=== PATIENT | female | born 1985 | race Caucasian/White ===

== ENCOUNTER 2018-10-12 21:54 | Emergency (ER) | payer OTHER ==
[2018-10-12 22:05] VITALS: BP 156/96; PULSE 96; RESP 18; TEMP 98.9
[2018-10-12 22:26] LABS: Basophils % (A) 0 %; Eosinophils # (A) 0.1 k/uL (0-0.7); Eosinophils % (A) 1 %; HCT 43.6 % (34.0-46.0); HGB 14.5 gm/dL (11.4-16.0); Lymphocytes # (A) 2.7 k/uL (1.0-4.8); Lymphocytes % (A) 31 %; MCH 32.1 pg (25.0-35.0); MCHC 33.3 g/dL (31.0-37.0); MCV 96.4 fL (80.0-100.0); Mean Platelet Volume 7.1; Monocytes # (A) 0.5 k/uL (0-1.0); Monocytes % (A) 6 %; Neutrophils # (A) 5.3 k/uL (1.3-7.7); Neutrophils % (A) 60 %; Platelet Count 291 k/uL (150-450); RBC 4.52 m/uL (3.80-5.40); RDW 12.8 % (11.5-15.5); WBC 8.9 k/uL (3.8-10.6)
[2018-10-12 22:30] LABS: Glucose,Whole Blood 100 mg/dL (75-99)
[2018-10-12 22:33] LABS: Partial Thromboplastin Time 25.8 sec (22.0-30.0); Prothrombin Time 10.4 sec (9.0-12.0)
[2018-10-12 22:34] LABS: ALT 19 U/L (9-52); AST 23 U/L (14-36); African American GFR (CKD) >90 (>60 ml/min/1.73 sqM); Albumin 4.9 g/dL (3.5-5.0); Alcohol <10 mg/dL; Alkaline Phosphatase 109 U/L (38-126); Amylase 68 U/L (30-110); Anion Gap 10 mmol/L; Blood Urea Nitrogen 26 mg/dL (7-17); Calcium 10.1 mg/dL (8.4-10.2); Carbon Dioxide 26 mmol/L (22-30); Chloride 104 mmol/L (98-107); Glucose 99 mg/dL (74-99); Potassium 3.8 mmol/L (3.5-5.1); Sodium 140 mmol/L (137-145); Total Bilirubin 0.3 mg/dL (0.2-1.3); Total Protein 8.2 g/dL (6.3-8.2)
[2018-10-12 22:38] LABS: Creatine Kinase 151 U/L (30-135)
--- NOTE | 2018-10-12 22:48 | XR ---
History: ITS.REASON XR Reason: TRAUMA Exam: XR CXR 1 VIEW Comparison: None available FINDINGS: The lungs are clear. The cardiac and mediastinal contours appear within limits. The visualized osseous structures appear within limits. IMPRESSION: No evidence of acute traumatic injury.
--- NOTE | 2018-10-12 22:50 | XR ---
History: ITS.REASON XR Reason: TRAUMA Exam: XR PELVIS single image Comparison: None available FINDINGS: No fracture or dislocation. Symmetric appearing SI joints and pubic symphysis appear within limits. IMPRESSION: No fracture or dislocation.
[2018-10-12 22:52] LABS: Creatine Kinase MB 0.4 ng/mL (0.0-2.4); Troponin I <0.012 ng/mL (0.000-0.034)
[2018-10-12] MEDS ORDERED: KETOROLAC 30 MG/ML 1 ML VIAL IVP STA (23:05)
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
--- NOTE | 2018-10-12 23:18 | CT ---
History: ITS.REASON CT Reason: trauma Exam: CT HEAD Without Contrast Technique more: CTDI is 45.2 mGy and DLP is 997.1 mGy-cm. Technique more: This CT exam was performed using one or more of the following dose reduction techniques: automated exposure control, adjustment of the mA and/or kV according to patient size, and/or use of iterative reconstruction technique. Comparison: None available FINDINGS: No intracranial hemorrhage, mass effect or calvarial fracture. The ventricles are within limits and midline. The paranasal sinuses, mastoids and orbits appear within limits. IMPRESSION: No intracranial hemorrhage, mass effect or calvarial fracture. Exam: CT C SPINE Without Contrast Technique more: CTDI is 9.8 mGy and DLP is 311 mGy-cm. Technique more: This CT exam was performed using one or more of the following dose reduction techniques: automated exposure control, adjustment of the mA and/or kV according to patient size, and/or use of iterative reconstruction technique. Comparison: None available FINDINGS: No fracture or malalignment. Disc spaces appear within limits. No evidence of prevertebral swelling. IMPRESSION: No fracture or malalignment.
--- NOTE | 2018-10-12 23:31 | CT ---
History: ITS.REASON CT Reason: trauma Exam: CT CHEST With Contrast Technique more: CTDI is 9.1 mGy and DLP is 633.7 mGy-cm. Technique more: This CT exam was performed using one or more of the following dose reduction techniques: automated exposure control, adjustment of the mA and/or kV according to patient size, and/or use of iterative reconstruction technique. Comparison: None available FINDINGS: Mild dependent basilar atelectasis. The central airways are patent. No pneumothorax. Thoracic aorta appears within limits. No pericardial or pleural effusion. No acute fracture. Right acromioclavicular joint osteoarthrosis. IMPRESSION: No evidence of acute traumatic injury. Exam: CT ABDOMEN + PELVIS With Contrast Technique more: CTDI is 9.1 mGy and DLP is 633.7 mGy-cm. Technique more: This CT exam was performed using one or more of the following dose reduction techniques: automated exposure control, adjustment of the mA and/or kV according to patient size, and/or use of iterative reconstruction technique. Comparison: None available FINDINGS: Motion artifact. Abdominal solid organs, gallbladder and abdominal aorta appear intact. Small hepatic cyst. No bowel dilation or free air. Normal caliber retrocecal appendix without secondary signs. Complex cystic lesion left adnexa measuring approximately 6.3 x 4.2 x 4.5 cm coronal 35 and axial 96. Requires follow-up with [facility]ESTHESIOLOGISTS' ASSISTANT consult and further workup. Small pelvic free fluid. Bladder appears within limits. No acute fracture identified. IMPRESSION: No definite evidence of acute traumatic injury. Complex cystic lesion left adnexa measuring approximately 6.3 x 4.2 x 4.5 cm coronal 35 and axial 96. Requires follow-up with ANESTHESIOLOGISTS' ASSISTANT consult and further workup. Small pelvic free fluid.
[2018-10-13 00:51] LABS: Appearance,Urine Clear (Clear); Bacteria,Urine Rare /hpf; Bilirubin,Urine Negative (Negative); Blood,Urine Negative (Negative); Color,Urine Light Yellow; Glucose,Urine (UA) Negative (Negative); Ketones,Urine 1+ (Negative); Leukocyte Esterase,Urine Moderate (Negative); Nitrite,Urine Negative (Negative); PH, Urine 6.5 (5.0-8.0); Protein,Urine Negative (Negative); RBC,Urine 2 /hpf (0-5); Squamous Epithelial Cell,Urine 11 /hpf (0-4); Urobilinogen,Urine <2.0 mg/dL (<2.0); WBC,Urine 4 /hpf (0-5)
[2018-10-13 00:56] LABS: Amphetamine Screen,Urine Not Detected (NotDetected); Barbiturate Screen,Urine Not Detected (NotDetected); Benzodiazepines Screen,Urine Not Detected (NotDetected); Cocaine Screen,Urine Not Detected (NotDetected); Methadone Screen, Urine Not Detected (NotDetected); Opiate Screen,Urine Not Detected (NotDetected); Oxycodone Screen, Urine Not Detected (NotDetected); Phencyclidine Screen,Urine Not Detected (NotDetected); Specific Gravity,Urine >1.050 (1.001-1.035); Tricyclic Antidepressant,Urine Not Detected (NotDetected); Urn Cannabinoid Scrn Not Detected (NotDetected)
== END 2018-10-13 01:22 | disposition home or self-care (01) ==
LOC: EC 21:54
DX: S16.1XXA Strain of muscle, fascia and tendon at neck level, initial encounter (principal); S70.01XA Contusion of right hip, initial encounter; S20.211A Contusion of right front wall of thorax, initial encounter; R10.9 Unspecified abdominal pain; R51 Headache; M79.7 Fibromyalgia; F17.200 Nicotine dependence, unspecified, uncomplicated; Z79.899 Other long term (current) drug therapy; V13.4XXA Pedal cycle driver injured in collision with car, pick-up truck or van in traffic accident, initial encounter; Y93.89 Activity, other specified; Y92.410 Unspecified street and highway as the place of occurrence of the external cause
CPT/HCPCS: 36415; 86900; 86901; 80053; 82150; 82550; 82553; 83605; 83690; 84484; 85025; 85610; 85730; 86850; 81001; 80306; 80320; 72170; 71045; 72125; 70450; 71260; 74177; 99285; 96374; J1885

== ENCOUNTER → 2018-11-13 | Outpatient (CLI) | payer OTHER ==
--- NOTE | 2018-11-14 08:38 | US ---
EXAMINATION TYPE: US transvaginal DATE OF EXAM: 11/13/2018 COMPARISON: NONE CLINICAL HISTORY: Left Ovarian Cyst N83.202. Hx of ovarian cyst. TECHNIQUE: Transvaginal (TV). EXAM MEASUREMENTS: Uterus: 7.9 x 4.0 x 6.1 cm Endometrial Stripe: 0.4 cm Right Ovary: 4.2 x 2.1 x 2.3 cm Left Ovary: 5.2 x 3.9 x 6.6 cm 1. Uterus: Anteverted wnl 2. Endometrium: wnl 3. Right Ovary: Two hypoechoic areas seen with color flow seen. These measure 1.8 x 1.3 x 1.1 and 1. 4 x .8 x 1.0 cm, likely hemorrhagic follicles 4. Left Ovary: Multiple cysts largest with thin septation measuring 4.3 x 2.8 x 4.9 cm. 5. Bilateral Adnexa: wnl 6. Posterior cul-de-sac: Small volume fluid seen. IMPRESSION: 1. Multiple left ovarian cysts are seen. The largest contains thin internal septations and measures 4 .9 cm. Within the left ovary there are probable hemorrhagic follicles versus much less likely solid l esions. Follow-up ultrasound is recommended in 3 menstrual cycles to ensure decrease size or resoluti on. 2. Small amount of free fluid in posterior cul-de-sac is likely physiologic. This could be sequela of recently ruptured cyst.
== END | disposition home or self-care (01) ==
LOC: RADUSWWP 15:45
PROVIDERS: ATTEND Obstetrics & Gynecology
DX: N83.202 Unspecified ovarian cyst, left side (principal)
CPT/HCPCS: 76830

== ENCOUNTER → 2019-01-30 | Outpatient (CLI) | payer OTHER ==
--- NOTE | 2019-01-30 11:36 | US ---
EXAMINATION TYPE: Transabdominal DATE OF EXAM: 01/30/2019 11:12 AM COMPARISON: NONE CLINICAL HISTORY: Z34.8. Early OB EXAM PERFORMED: OBTA EXAM MEASUREMENTS: GESTATIONAL AGE / DATING Physician Established: Not yet established Dates by LMP: (6 weeks/0 days) EDC: Dates by First Scan: No previous this is first scan Dates by Current Scan for: (6 weeks/1 days) EDC: 09/23/2018 MATERNAL ANATOMY Uterus: 10.9 x 6.5 x 5.9cm Right Ovary: 4.4 x 2.8 x 2.4cm Left Ovary: 5.7 x 3.3 x 4.6cm, multiple cystic areas as noted on previous exams, largest = 2.7cm Post CDS / Adnexa: wnl Presence of free fluid: no Presence of corpus luteal cyst: right ovary 2.9cm Presence of subchorionic bleed: no GESTATION / SURVEY CRL: 0.4cm ( 6 weeks/1 days) MSD: wnl Yolk Sac (normal less than 6mm): 0.3cm Heart Rate: 123 bpm Rhythm: Normal IUP: Viable IUP Date of LMP: 12/19/2018 IMPRESSION: Single viable intrauterine . Bilateral ovarian cysts.
== END | disposition home or self-care (01) ==
LOC: RADUSWWP 10:44
PROVIDERS: ATTEND Obstetrics & Gynecology
DX: N83.202 Unspecified ovarian cyst, left side (principal); N83.201 Unspecified ovarian cyst, right side
CPT/HCPCS: 76801

== ENCOUNTER → 2019-02-15 | Outpatient (CLI) | payer OTHER ==
--- NOTE | 2019-02-16 07:30 | US ---
EXAMINATION TYPE: Transabdominal DATE OF EXAM: 02/15/2019 6:02 PM COMPARISON: US"S CLINICAL HISTORY: O20.0 Threatened . cervix length EXAM PERFORMED: Transvaginal (TV) and Transabdominal (TA) EXAM MEASUREMENTS: GESTATIONAL AGE / DATING Physician Established: (8 weeks/2 days) EDC: 09/25/2019 Dates by LMP: 12/19/2018 (8 weeks/2 days) EDC: 09/25/2019 Dates by First Scan: (8 weeks/2 days) EDC: 09/25/2019 Dates by Current Scan for: (8 weeks/6 days) EDC: 09/21/2019 MATERNAL ANATOMY Uterus: 14.6 x 6.2 x 7.1 cm Right Ovary: 4.5 x 2.5 x 3.2 cm Left Ovary: 6.9 x 4.9 x 5.1 cm Post CDS / Adnexa: wnl Presence of free fluid: none Presence of corpus luteal cyst: solid area right ovary measures 2.6 x 1.7 x 2.2 cm with peripheral fl ow. Cervix: 3.8 cm GESTATION / SURVEY CRL: 2.1 cm (8 weeks/6 days) Yolk Sac (normal less than 6mm): 0.4 cm Heart Rate: 168 bpm Rhythm: Normal IUP: Live IUP Date of LMP: 12/19/2018 Live IUP that correlates with LMP. Enlarged left ovary with multiple cysts, largest measures 3.4 x 3. 0 x 3.4 cm. Prior imaging on PACS from 11/13/2018. IMPRESSION: Single live intrauterine with a sonographic age of 8 weeks and 6 days concordan t with menstrual age with estimated date of delivery of 09/25/2019. No cervical incompetence with a ce rvical length measuring 3.8 cm.
== END | disposition home or self-care (01) ==
LOC: RADUSMAIN 17:25
PROVIDERS: ATTEND Obstetrics & Gynecology
DX: Z34.91 Encounter for supervision of normal pregnancy, unspecified, first trimester (principal); Z3A.08 8 weeks gestation of pregnancy
CPT/HCPCS: 76801; 76817

== ENCOUNTER 2019-04-07 09:04 | Emergency (ER) | payer OTHER ==
[2019-04-07] MEDS ORDERED: ALBUTEROL NEBULIZED 2.5 MG/3 ML INHALATION STA (09:47)
[2019-04-07] MEDS ORDERED: guaiFENesin-DM 100-10MG/5ML 10 ML CUP PO STA (09:47)
[2019-04-07] MEDS ORDERED: ACETAMINOPHEN TAB 500 MG TAB PO STA (09:47)
--- NOTE | 2019-04-07 10:07 | ED ---
URI HPI - General Chief Complaint: Upper Respiratory Infection Stated Complaint: 16 wks /Congested Time Seen by Provider: 04/07/19 09:40 Source: patient, RN notes reviewed, old records reviewed Mode of arrival: ambulatory Limitations: no limitations - History of Present Illness Initial Comments: Patient is a 33-year-old female, approximately 16 weeks . She presents today with chief complaint of cough congestion shortness of breath. Patient states that her PROJECT BUYER is Dr. Noyola. 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 She reports that she's had a worsening cough over the past 3 days. Patient states that she has a history of asthma and has been using her inhaler as needed. States that she just still cannot get a full deep breath without having bronchospasm and coughing. - Related Data Home Medications Medication Instructions Recorded Confirmed Albuterol Inhaler [Ventolin Hfa 1 - 2 puff INHALATION RT-Q6H PRN 10/12/18 10/12/18 Inhaler] Montelukast [Singulair] 10 mg PO DAILY PRN 10/12/18 10/12/18 Multivitamins, Thera [Multivitamin 1 tab PO DAILY 10/12/18 10/12/18 (formulary)] Pregabalin [Lyrica] 300 mg PO BID 10/12/18 10/12/18 Previous Rx's Medication Instructions Recorded Cyclobenzaprine [Flexeril] 10 mg PO TID #14 tab 10/13/18 Ibuprofen 800 mg PO Q6HR PRN #20 tablet 10/13/18 Azithromycin [Zithromax Z-pack] 250 mg PO DIRECTED #6 tab 04/07/19 guaiFENesin-DM 100-10MG/5ML 10 ml PO QID #120 ml 04/07/19 [Robitussin DM] Allergies Allergy/AdvReac Type Severity Reaction Status Date / Time No Known Allergies Allergy Verified 04/07/19 09:25 Review of Systems ROS Statement: Those systems with pertinent positive or pertinent negative responses have been documented in the HPI. ROS Other: All systems not noted in ROS Statement are negative. Past Medical History Past Medical History: Asthma, Fibromyalgia History of Any Multi-Drug Resistant Organisms: None Reported Past Surgical History: No Surgical Hx Reported Past Psychological History: No Psychological Hx Reported Smoking Status: Former smoker Past Alcohol Use History: None Reported Past Drug Use History: None Reported General Exam - General Exam Comments Initial Comments: 31 female. Alert and oriented 3. Limitations: no limitations General appearance: alert, in no apparent distress Head exam: Present: atraumatic, normocephalic, normal inspection Eye exam: Present: normal appearance, PERRL, EOMI. Absent: scleral icterus, conjunctival injection, periorbital swelling ENT exam: Present: normal exam, mucous membranes moist Neck exam: Present: normal inspection. Absent: tenderness, meningismus, lymphadenopathy Respiratory exam: Present: normal lung sounds bilaterally. Absent: respiratory distress, wheezes, rales, rhonchi, stridor Cardiovascular Exam: Present: regular rate, normal rhythm, normal heart sounds. Absent: systolic murmur, diastolic murmur, rubs, gallop, clicks GI/Abdominal exam: Present: soft, normal bowel sounds. Absent: distended, tenderness, guarding, rebound, rigid Extremities exam: Present: normal inspection, full ROM, normal capillary refill. Absent: tenderness, pedal edema, joint swelling, calf tenderness Back exam: Present: normal inspection Neurological exam: Present: alert, oriented X3, CN II-XII intact Psychiatric exam: Present: normal affect, normal mood Skin exam: Present: warm, dry, intact, normal color. Absent: rash Course Vital Signs 04/07/19 04/07/19 04/07/19 09:20 09:56 10:07 Temperature 98.5 F Pulse Rate 100 85 89 Respiratory 20 Rate Blood Pressure 110/71 O2 Sat by Pulse 98 Oximetry Medical Decision Making - Medical Decision Making 33-year-old female presents today for cough congestion, complains of symptoms lasting for the past 3 days. Patient is 16 weeks . No complaints including vaginal bleeding or discharge. Lungs were clear but she does have some bronchospasms with taking deep breath. Patient is negative for flu. Patient's feels better after Robitussin and albuterol treatment. Discussed at this time and treat the Patient with Robitussin, likely viral syndrome however her cough worsens or is more productive she can start azithromycin. Patient is agreeable to treatment plan will comply. Return parameters were discussed. - Lab Data Lab Results 04/07/19 Range/Units 09:51 Influenza Type A RNA Not Detected (Not Detectd) Influenza Type B (PCR) Not Detected (Not Detectd) Disposition Clinical Impression: Bronchitis Disposition: HOME SELF-CARE Condition: Good Instructions (If sedation given, give patient instructions): Upper Respiratory Infection (ED) Additional Instructions: Please use medication as discussed. Patient should have Tylenol for fever or pain. Increase fluid intake. Please follow up with family doctor if symptoms have not improved over the next two days. Please return to the emergency room if your symptoms increase or worsen or for any other concerns. Prescriptions: guaiFENesin-DM 100-10MG/5ML [Robitussin DM] 10 ml PO QID #120 ml Azithromycin [Zithromax Z-pack] 250 mg PO DIRECTED #6 tab Is patient prescribed a controlled substance at d/c from ED?: No Referrals: Alice Bates MD [Primary Care Provider] - 1-2 days Time of Disposition: 11:01
[2019-04-07 11:08] VITALS: BP 138/74; PULSE 79; RESP 18; TEMP 98
== END 2019-04-07 11:07 | disposition home or self-care (01) ==
LOC: EC 09:04
DX: O99.512 Diseases of the respiratory system complicating pregnancy, second trimester (principal); J20.9 Acute bronchitis, unspecified; J45.909 Unspecified asthma, uncomplicated; O99.89 Other specified diseases and conditions complicating pregnancy, childbirth and the puerperium; M79.7 Fibromyalgia; Z79.51 Long term (current) use of inhaled steroids; Z79.899 Other long term (current) drug therapy; Z3A.16 16 weeks gestation of pregnancy; Z87.891 Personal history of nicotine dependence
CPT/HCPCS: 87502; 94640; 99285

== ENCOUNTER → 2020-02-22 | Outpatient (CLI) | payer OTHER ==
--- NOTE | 2020-02-22 08:08 | US ---
EXAMINATION TYPE: US pelvic complete DATE OF EXAM: 02/22/2020 COMPARISON: CT & US 2018 CLINICAL HISTORY: R10.2 Pelvic and perineal pain, N94.10 dyspareunia. Pain during sex x 5 months, gra genny 6, para 3, miscarriage 3 TECHNIQUE: . Transabdominal sonographic images of the pelvis were acquired. Date of LMP: Patient unsure of LMP EXAM MEASUREMENTS: Uterus: 10.7 x 4.5 x 5.6 cm Endometrial Stripe: 0.9 cm Right Ovary: 4.2 x 2.4 x 3.6 cm Left Ovary: 5.8 x 3.6 x 6.6 cm 1. Uterus: anteverted 2. Endometrium: appears wnl 3. Right Ovary: 2.4 x 2.1 x 2.2cm cystic area 4. Left Ovary: multiple cystic areas with largest measures 3.7 x 3.1 x 3.3cm 5. Bilateral Adnexa: wnl 6. Posterior cul-de-sac: small amount of free fluid IMPRESSION: 1. Bilateral ovarian cysts. Follow-up pelvic ultrasound following the next normal menstrual period is recommended.
--- NOTE | 2020-02-22 08:18 | US ---
EXAMINATION TYPE: US abdomen complete DATE OF EXAM: 02/22/2020 COMPARISON: CT 2019 CLINICAL HISTORY: R10.2 Pelvic and perineal pain, N94.10 dyspareunia. EXAM MEASUREMENTS: Liver Length: 16.4 cm Gallbladder Wall: 0.1 cm CBD: 0.4 cm Spleen: 9.4 cm Right Kidney: 10.7 x 5.0 x 5.1 cm Left Kidney: 10.0 x 5.5 x 4.7 cm Pancreas: visualized portions wnl, limited by overlying midline bowel gas Liver: 1.1cm cystic area right lobe Gallbladder: wnl Evidence for sonographic Ellison's sign: no CBD: wnl Spleen: wnl Right Kidney: wnl Left Kidney: wnl Upper IVC: wnl Abd Aorta: proximal and mid portion wnl, distal portion obscured by overlying midline bowel gas IMPRESSION: 1. Hepatic cyst
== END | disposition home or self-care (01) ==
LOC: RADUSWWP 07:05
PROVIDERS: ATTEND Family Medicine
DX: N83.202 Unspecified ovarian cyst, left side (principal); N83.201 Unspecified ovarian cyst, right side; K76.89 Other specified diseases of liver
CPT/HCPCS: 76700; 76856

== ENCOUNTER → 2020-03-11 | Outpatient (CLI) | payer OTHER ==
--- NOTE | 2020-03-11 15:52 | US ---
EXAMINATION TYPE: US pelvic complete DATE OF EXAM: 03/11/2020 COMPARISON: US 2019 CLINICAL HISTORY: 6184. Follow up ovarian cysts TECHNIQUE: . Transabdominal sonographic images of the pelvis were acquired. Date of LMP: 03/09/2019 EXAM MEASUREMENTS: Uterus: 8.4 x 5.2 x 5.5 cm Endometrial Stripe: 0.7 cm Right Ovary: 3.3 x 3.2 x 3.3 cm Left Ovary: 7.6 x 4.4 x 4.5 cm 1. Uterus: mildly heterogeneous 2. Endometrium: wnl 3. Right Ovary: wnl 4. Left Ovary: multiple cystic areas with largest measures 3.5 x 3.2 x 3.3cm 5. Bilateral Adnexa: wnl 6. Posterior cul-de-sac: small amount of free fluid IMPRESSION: 1. Multiple cysts within the left ovary
== END | disposition home or self-care (01) ==
LOC: RADUSWWP 09:02
PROVIDERS: ATTEND Family Medicine
DX: N83.202 Unspecified ovarian cyst, left side (principal); N83.201 Unspecified ovarian cyst, right side
CPT/HCPCS: 76856

== ENCOUNTER → 2020-04-29 | Outpatient (CLI) | payer OTHER ==
--- NOTE | 2020-05-03 07:13 | CT ---
EXAMINATION TYPE: CT adrenal glands wo/w con DATE OF EXAM: 04/29/2020 HISTORY: Back pain and abnormal MRI of left adrenal gland. CT DLP: 917mGycm Automated Exposure Control for Dose Reduction was Utilized. CONTRAST: CT scan of the abdomen is performed with oral and without and with IV Contrast, patient injected with 100ml mL of Isovue 300. Adrenal gland protocol. COMPARISON: CT October 12, 2018. Outside lumbar spine MRI. 10/24/2020 FINDINGS: LUNG BASES: Dependent atelectasis. LIVER/GB: No significant abnormality is appreciated. PANCREAS: No significant abnormality is seen. SPLEEN: No significant abnormality is seen. ADRENALS: Right adrenal gland within normal limits. There is stable slight thickening or nodularity t o left adrenal gland measuring 1.6 x 1.0 cm series 3 image [address] and MRI. Houn sfield units average 21-24 on noncontrast images. There is enhancement to roughly 107 Hounsfield unit s on 1 minute postcontrast images. There is washout to 45 Hounsfield units on 15 minute delayed phase images. Small size with stability from October 12, 2018 CT and washout greater than 50% is consistent with benign lipid rich adenoma. KIDNEYS: No significant abnormality is seen. BOWEL: Incidental normal-appearing appendix ascending from cecum. Oral contrast does not reach ileal bowel loops making follow-up evaluation slightly suboptimal. No suspicious bowel dilatation. LYMPH NODES: No greater than 1cm abdominal lymph nodes are appreciated. OSSEOUS STRUCTURES: No significant abnormality is seen. OTHER: No significant additional abnormality is seen. IMPRESSION: Small 1.6 x 1.0 cm left adrenal mass unchanged in size from October 12, 2018 CT correspondi ng to area of concern on outside lumbar spine MRI. Small size and dynamic postcontrast imaging is con sistent with benign lipid rich adenoma.
== END | disposition home or self-care (01) ==
LOC: RADCTMAIN 15:37
PROVIDERS: ATTEND Psychiatry & Neurology Neurology
DX: E27.9 Disorder of adrenal gland, unspecified (principal); N28.89 Other specified disorders of kidney and ureter; R90.89 Other abnormal findings on diagnostic imaging of central nervous system
CPT/HCPCS: 74170; Q9967

== ENCOUNTER → 2020-07-21 | Outpatient (CLI) | payer OTHER ==
[2020-07-21 09:44] LABS: Appearance,Urine Cloudy (Clear); Bacteria,Urine Occasional /hpf; Bilirubin,Urine Negative (Negative); Blood,Urine Negative (Negative); Budding Yeast,Urine Rare /hpf; Color,Urine Yellow; Glucose,Urine (UA) Negative (Negative); Ketones,Urine Negative (Negative); Leukocyte Esterase,Urine Large (Negative); Mucus,Urine Rare /hpf; Nitrite,Urine Negative (Negative); Protein,Urine Trace (Negative); RBC,Urine 3 /hpf (0-5); Specific Gravity,Urine 1.022 (1.001-1.035); Squamous Epithelial Cell,Urine 35 /hpf (0-4); Urobilinogen,Urine <2.0 mg/dL (<2.0); WBC,Urine 8 /hpf (0-5)
[2020-07-21 14:30] LABS: HCT 41.2 % (37.2-46.3); HGB 13.8 g/dL (12.0-15.0); MCH 30.9 pg (27.0-32.0); MCHC 33.5 g/dL (32.0-37.0); MCV 92.4 fL (80.0-97.0); Mean Platelet Volume 10.6 fL (9.5-12.2); Platelet Count 328 X 10*3/uL (140-440); RBC 4.46 X 10*6/uL (4.10-5.20); RDW 13.4 % (11.5-14.5); WBC 7.24 X 10*3/uL (4.50-10.00)
[2020-07-21 16:43] LABS: African American GFR (CKD) 131.9 (60.0-200.0); Albumin 4.5 g/dL (3.80-4.90); Albumin/Globulin Ratio 1.67 (1.60-3.17); Anion Gap 5.4 mmol/L (4.00-12.00); BUN/Creat Ratio 18.57 Ratio (12.00-20.00); C Reactive Protein 0.4 mg/dL (0.0-0.8); Calcium 9.1 mg/dL (8.7-10.3); Carbon Dioxide 25.6 mmol/L (21.6-31.8); Globulin 2.7 g/dL (1.6-3.3); Magnesium 1.7 mg/dL (1.5-2.4); Non-African American GFR(CKD) 113.8 (60.0-200.0); Potassium 4.2 mmol/L (3.5-5.5); Total Bilirubin 0.3 mg/dL (0.2-1.2); Total Protein 7.2 g/dL (6.2-8.2)
[2020-07-21 17:01] LABS: Erythrocyte Sedimentation Rate 9 mm/Hr (0-20)
[2020-07-21 20:34] LABS: Hemoglobin A1C 5.3 % (4.0-6.0)
[2020-07-23 06:26] LABS: Vitamin E (Alpha Tocopherol) 795 ug/dL (500-1800)
[2020-07-23 06:49] LABS: Vit B1(Thiamine) 64 ug/L (38-122)
== END | disposition home or self-care (01) ==
LOC: LABWHC1 07:53
PROVIDERS: ATTEND Psychiatry & Neurology Pain Medicine
DX: G89.4 Chronic pain syndrome (principal); M79.7 Fibromyalgia; Z79.899 Other long term (current) drug therapy
CPT/HCPCS: 36415; 80053; 81001; 82306; 82550; 82607; 82746; 83036; 83519; 83735; 84207; 84425; 84446; 84590; 84591; 84597; 85027; 85652; 86140

== ENCOUNTER 2023-04-19 23:33 | Emergency (ER) | payer OTHER ==
--- NOTE | 2023-04-20 01:08 | ED ---
General Adult HPI - General Chief complaint: Skin/Abscess/Foreign Body Stated complaint: possible body lice Time Seen by Provider: 04/20/23 01:00 Source: patient Mode of arrival: ambulatory Limitations: no limitations - History of Present Illness Initial comments: 37-year-old female presenting to the ED with a chief complaint of skin problem. Patient states that her boyfriend has lice and fears she may have caught it. States she is now starting to have all over body itching. Reports that she was recently treated for scabies however this provided no relief. Denies fever or chills. No other complaints at this time. - Related Data Home Medications Medication Instructions Recorded Confirmed Albuterol Inhaler [Ventolin Hfa 1 - 2 puff INHALATION RT-Q6H PRN 10/12/18 10/12/18 Inhaler] Montelukast [Singulair] 10 mg PO DAILY PRN 10/12/18 10/12/18 Multivitamins, Thera [Multivitamin 1 tab PO DAILY 10/12/18 10/12/18 (formulary)] Pregabalin [Lyrica] 300 mg PO BID 10/12/18 10/12/18 Previous Rx's Medication Instructions Recorded Cyclobenzaprine [Flexeril] 10 mg PO TID #14 tab 10/13/18 Ibuprofen 800 mg PO Q6HR PRN #20 tablet 10/13/18 Azithromycin [Zithromax Z-pack (6 250 mg PO DIRECTED #6 tab 04/07/19 tabs)] guaiFENesin-DM 100-10MG/5ML 10 ml PO QID #120 ml 04/07/19 [Robitussin DM] Permethrin 5% Cream [Elimite] 1 applic TOPICAL ONCE #60 gram 04/20/23 Allergies Allergy/AdvReac Type Severity Reaction Status Date / Time No Known Allergies Allergy Verified 04/20/23 00:29 Review of Systems ROS Statement: Those systems with pertinent positive or pertinent negative responses have been documented in the HPI. ROS Other: All systems not noted in ROS Statement are negative. Past Medical History Past Medical History: Asthma, Fibromyalgia History of Any Multi-Drug Resistant Organisms: None Reported Past Surgical History: No Surgical Hx Reported Past Psychological History: No Psychological Hx Reported Past Alcohol Use History: None Reported Past Drug Use History: None Reported General Exam Limitations: no limitations General appearance: alert, in no apparent distress Neck exam: Present: normal inspection Respiratory exam: Present: normal lung sounds bilaterally Cardiovascular Exam: Present: regular rate GI/Abdominal exam: Present: soft Neurological exam: Present: alert, oriented X3 Skin exam: Present: other (Patient does have a rash on the right side of her face. Unable to see any lice on examination.) Course Vital Signs 04/20/23 00:27 Temperature 98.2 F Pulse Rate 123 H Respiratory 18 Rate Blood Pressure 143/113 O2 Sat by Pulse 99 Oximetry Medical Decision Making - Medical Decision Making Was pt. sent in by a medical professional or institution (, PA, CAMERA REPAIRMAN, urgent care, hospital, or long term...) When possible be specific @ -No Did you speak to anyone other than the patient for history (EMS, parent, family, police, friend...)? What history was obtained from this source @ -No Did you review nursing and triage notes (agree or disagree)? Why? @ -I reviewed and agree with nursing and triage notes Were old charts reviewed (outside hosp., previous admission, EMS record, old EKG, old radiological studies, urgent care reports/EKG's, long term records)? Report findings @ -No old charts were reviewed Differential Diagnosis (chest pain, altered mental status, abdominal pain women, abdominal pain men, vaginal bleeding, weakness, fever, dyspnea, syncope, headache, dizziness, GI bleed, back pain, seizure, CVA, palpatations, mental health, musculoskeletal)? @ -Differential Musculoskeletal Muscular strain, contusion, ligament sprain, fracture, arthritis, septic arthritis, bursitis, cellulitis, muscle spasm, nerve compression, DVT, arterial occlusion, herpes zoster, electrolyte abnormality, tumor.... This is not meant to be in all inclusive list EKG interpreted by me (3pts min.). @ -None X-rays interpreted by me (1pt min.). @ -None done CT interpreted by me (1pt min.). @ -None done U/S interpreted by me (1pt. min.). @ -None done What testing was considered but not performed or refused? (CT, X-rays, U/S, labs)? Why? @ -None What meds were considered but not given or refused? Why? @ -None Did you discuss the management of the patient with other professionals (ousmane willoughby i.e. , PA, CAMERA REPAIRMAN, lab, RT, psych nurse, social sciences chair, warehouse assistant, teacher, title officer, caser)? Give summary @ -No Was smoking cessation discussed for >3mins.? @ -No Was critical care preformed (if so, how long)? @ -No Were there social determinants of health that impacted care today? How? (Homelessness, low income, unemployed, alcoholism, drug addiction, transportation, low edu. Level, literacy, decrease access to med. care, longterm, rehab)? @ -No Was there de-escalation of care discussed even if they declined (Discuss DNR or withdrawal of care, Hospice)? DNR status @ -No What co-morbidities impacted this encounter? (DM, HTN, Smoking, COPD, CAD, Cancer, CVA, ARF, Chemo, Hep., AIDS, mental health diagnosis, sleep apnea, morbid obesity)? @ -None Was patient admitted / discharged? Hospital course, mention meds given and route, prescriptions, significant lab abnormalities, going to OR and other pertinent info. @ -Discharge 37-year-old female presenting to the ED with a chief complaint of skin problem. On exam rash does appear fungal in nature however patient refusing any antifungal prescriptions. Is requesting medication for lice. Provided prescription for permethrin. Discharged home in stable condition advised to follow-up with PCP. Undiagnosed new problem with uncertain prognosis? @ -No Drug Therapy requiring intensive monitoring for toxicity (Heparin, Nitro, Insulin, Cardizem)? @ -No Were any procedures done? @ -No Diagnosis/symptom? @ -Rash, concern for lice Acute, or Chronic, or Acute on Chronic? @ -Acute Uncomplicated (without systemic symptoms) or Complicated (systemic symptoms)? @ -Uncomplicated Side effects of treatment? @ -No Exacerbation, Progression, or Severe Exacerbation? @ -No Poses a threat to life or bodily function? How? (Chest pain, [place], [place], pneumonia, PE, COPD, DKA, ARF, appy, cholecystitis, CVA, Diverticulitis, Homicidal, Suicidal, threat to staff... and all critical care pts) @ -No Disposition Clinical Impression: Rash Disposition: HOME SELF-CARE Condition: Good Additional Instructions: Please return to the Emergency Department if symptoms worsen or any other concerns. Please follow-up with your primary care provider. Prescriptions: Permethrin 5% Cream [Elimite] 1 applic TOPICAL ONCE #60 gram Is patient prescribed a controlled substance at d/c from ED?: No Referrals: Kassandra Maxwell PAC [Primary Care Provider] - 1-2 days Time of Disposition: 01:11
[2023-04-20 01:20] VITALS: BP 140/79; PULSE 80; RESP 188; TEMP 97.8
== END 2023-04-20 01:12 | disposition home or self-care (01) ==
LOC: EC 23:33
DX: R21 Rash and other nonspecific skin eruption (principal); J45.909 Unspecified asthma, uncomplicated; M79.7 Fibromyalgia; Z79.899 Other long term (current) drug therapy
CPT/HCPCS: 99282